=== PATIENT | male | born 1990 | race Caucasian/White ===

== ENCOUNTER → 2020-04-14 | Emergency (ER) | payer MEDICAID ==
[~2020-04-14] VITALS: Ht 177.8 cm; Wt 72.6 kg
[2020-04-14 23:21] VITALS: BP 119/80
== END | disposition home or self-care (01) ==
LOC: ER 22:36
DX: T15.91XA Foreign body on external eye, part unspecified, right eye, initial encounter (principal); X58.XXXA Exposure to other specified factors, initial encounter; Y93.89 Activity, other specified; Y92.89 Other specified places as the place of occurrence of the external cause; Y99.8 Other external cause status